=== PATIENT | male | born 1965 ===

== ENCOUNTER 2018-09-29 17:51 | Emergency (ER) | payer BC, OTHER ==
[2018-09-29 17:51] VITALS: BMI 27.3
--- NOTE | 2018-09-29 19:24 | C.PDOC ---
History Of Present Illness 53 year old male presents to the emergency department with complaints of stomach pain for the last few months, which became worse today. Patient denies vomiting, diarrhea, fever, and chills. Patient states that he has been having normal bowel movements with the last one being today. Patient reports that he feels like his stomach is "heavy". Patient has a past medical history of diabetes. Time Seen by Provider: 09/29/18 18:12 Chief Complaint (Nursing): Abdominal Pain History Per: Patient History/Exam Limitations: no limitations Onset/Duration Of Symptoms: Other (months) Current Symptoms Are (Timing): Worse Location Of Pain/Discomfort: Other (abdomen) Past Medical History Reviewed: Historical Data, Nursing Documentation, Vital Signs Vital Signs: Last Vital Signs Temp 98.1 F 09/29/18 17:59 Pulse 73 09/29/18 17:59 Resp 20 09/29/18 17:59 BP 177/83 H 09/29/18 17:59 Pulse Ox 97 09/29/18 17:59 - Medical History PMH: Diabetes, HTN, Hypercholesterolemia Surgical History: Coronary Stent - [facility] Procedures ESOPHAGOGASTRODUODENOSCOPY [EGD] W/CLOSED BIOPSY (09/18/13) Family History: States: No Known Family Hx - Social History Hx Tobacco Use: No Hx Alcohol Use: No Hx Substance Use: No - Immunization History Hx Tetanus Toxoid Vaccination: No (07/22/2013) Hx Influenza Vaccination: No Hx Pneumococcal Vaccination: No (07/22/2013) Review Of Systems Except As Marked, All Systems Reviewed And Found Negative. Constitutional: Negative for: Fever, Chills Gastrointestinal: Positive for: Abdominal Pain. Negative for: Nausea, Vomiting, Diarrhea Physical Exam - Physical Exam Appears: Non-toxic, No Acute Distress Skin: Warm, Dry, Rash (patchy, maculopapular rash diffuse, no excoriation, no increased erythema, no pustules or vesicles. ) Head: Atraumatic, Normacephalic Eye(s): bilateral: Normal Inspection, PERRL, EOMI Nose: Normal Oral Mucosa: Moist Chest: Symmetrical, No Tenderness Cardiovascular: Rhythm Regular, No Murmur Respiratory: Normal Breath Sounds, No Rales, No Rhonchi, No Wheezing Gastrointestinal/Abdominal: Soft, Tenderness (mild tenderness to lower abdomen), No Guarding, No Rebound Extremity: Normal ROM Neurological/Psych: Oriented x3, Normal Speech, Normal Cognition ED Course And Treatment - Laboratory Results Result Diagrams: 09/29/18 19:19 09/29/18 19:19 O2 Sat by Pulse Oximetry: 97 (RA) Pulse Ox Interpretation: Normal Medical Decision Making Medical Decision Making: Plan: CMP Lipase CBC Disposition Counseled Patient/Family Regarding: Studies Performed, Diagnosis, Need For Followup - Disposition Referrals: [facility] [Outside] [facility] [Outside] Disposition: HOSPITALIZED Disposition Time: 21:53 Condition: STABLE Additional Instructions: JOJO GUERRIER, thank you for letting us take care of you today. Your provider was Hoa Cullen MD and you were treated for ABD PAIN. The emergency medical care you received today was directed at your acute symptoms. If you were prescribed any medication, please fill it and take as directed. It may take several days for your symptoms to resolve. Return to the Emergency Department if your symptoms worsen, do not improve, or if you have any other problems. You can purchase Hydrocortisone cream for rash and Pepcid for abdominal discomfort. Please contact your the physicians/clinics you have been referred to that are listed on the Patient Visit Information form that is included in your discharge packet. Bring any paperwork you were given at discharge with you along with any medications you are taking to your follow up visit. Our treatment cannot replace ongoing medical care by a primary care provider outside of the emergency department. Thank you for allowing the [facility] team to be part of your care today. Instructions: Chronic Pain (DC), Skin Rash (DC), Topical Corticosteroid Medicines Forms: [employer] (Romanian) - POA Present On Arrival: None - Clinical Impression Clinical Impression: Abdominal pain, Rash and nonspecific skin eruption - Scribe Statement The provider has reviewed the documentation as recorded by the Scribe (David Yunvi) Provider Attestation: All medical record entries made by the Scribe were at my direction and personally dictated by me. I have reviewed the chart and agree that the record accurately reflects my personal performance of the history, physical exam, medical decision making, and the department course for this patient. I have also personally directed, reviewed, and agree with the discharge instructions and disposition.
[2018-09-29 19:25] LABS: BASO # 0.1 K/uL (0.0-0.2); BASO % 0.6 % (0.0-2.0); EOS # 0.1 K/uL (0.0-0.7); EOS % 1.3 % (0.0-4.0); LYMPH % 43.1 % (20.0-40.0); MEAN CELL VOLUME 88.7 fL (80.0-94.0); MEAN CORPUSCULAR HEMOGLOBIN 30.1 pg (27.0-31.0); MEAN CORPUSCULAR HGB CONC 33.9 g/dL (33.0-37.0); MEAN PLATELET VOLUME 9.8 fL (7.2-11.7); MONO # 0.8 K/uL (0.0-0.8); MONO % 6.7 % (0.0-10.0); NEUT # 5.6 K/uL (1.8-7.0); NEUT % 48.3 % (50.0-75.0); NRBC % 0.1 % (0.0-2.0); RBC 5.3 Mil/uL (4.40-5.90); RED CELL DISTRIBUTION WIDTH 13.4 % (11.5-14.5); WHITE BLOOD COUNT 11.5 K/uL (4.8-10.8)
[2018-09-29 19:42] LABS: ALB/GLOB RATIO 1.5 (1.0-2.1); ALBUMIN 4.9 g/dL (3.5-5.0); ALT/SGPT 15 U/L (21-72); AST/SGOT 20 U/L (17-59); BLOOD UREA NITROGEN 13 mg/dL (9-20); CALCIUM 9.3 mg/dl (8.6-10.4); GFR NON-AFRICAN AMERICAN > 60; LIPASE 39 U/L (23-300)
[2018-09-29 22:12] VITALS: BP 143/78; PULSE 89; RESP 17; TEMP 98; O2SAT 98
== END 2018-09-29 22:11 | disposition home or self-care (01) ==
LOC: C.ER 17:51
DX: R10.9 Unspecified abdominal pain (principal); R21 Rash and other nonspecific skin eruption; I10 Essential (primary) hypertension; E11.9 Type 2 diabetes mellitus without complications; E78.00 Pure hypercholesterolemia, unspecified; Z95.5 Presence of coronary angioplasty implant and graft; F17.210 Nicotine dependence, cigarettes, uncomplicated